=== PATIENT | male | born 1970 | race Caucasian/White ===

== ENCOUNTER 2020-04-07 14:51 | Emergency (ER) | payer MEDICAID ==
[~2020-04-07] VITALS: Ht 180.3 cm; Wt 79.9 kg
[2020-04-07] MEDS ORDERED: baclofen 10mg tablet PO STA (16:03)
[2020-04-07 16:32] LABS: BASOPHILS % (AUTO) 0.5 % (0-1); EOSINOPHILS % (AUTO) 0.3 % (0-6); HEMATOCRIT 46.1 % (42.0-52.0); HEMOGLOBIN 15.9 g/dl (14.0-17.9); MEAN CORPUSCULAR HEMOGLOBIN 30.9 PG (27.0-31.0); MEAN CORPUSCULAR HGB CONC 34.5 g/dL (33.0-36.5); MEAN CORPUSCULAR VOLUME 89.7 FL (78-98); MEAN PLATELET VOLUME 8.3 FL (7.4-10.4); MONOCYTES # (AUTO) 0.2 X10'3 (0-0.9); MONOCYTES % (AUTO) 2.2 % (2-12); NEUTROPHILS # (AUTO) 7.6 X10'3 (1.8-7.7); PLATELET COUNT 129 X10'3 (140-440); RED BLOOD COUNT 5.14 X10'6 (4.70-6.10); RED CELL DISTRIBUTION WIDTH 15.1 % (11.5-14.5); WHITE BLOOD COUNT 8.9 X10'3 (4.5-11.0)
[2020-04-07 16:45] LABS: ALANINE AMINOTRANSFERASE 213 U/L (12-78); ALBUMIN/GLOBULIN RATIO 1.2 (1.1-1.5); ALKALINE PHOSPHATASE 83 IU/L (46-116); ANION GAP 18 (8-16); ASPARTATE AMINO TRANSFERASE 237 U/L (10-37); BILIRUBIN,TOTAL 1.7 MG/DL (0.1-1.0); BLOOD UREA NITROGEN 12 MG/DL (7-18); CALCIUM 8.9 MG/DL (8.5-10.1); CHLORIDE 98 MMOL/L (99-107); GLUCOSE 72 MG/DL (70-104); POTASSIUM 4.3 MMOL/L (3.5-5.1); SODIUM 136 MMOL/L (135-145); TOTAL CARBON DIOXIDE 20.1 MMOL/L (24-32); TOTAL PROTEIN 7.4 G/DL (6.4-8.2); eGFR 79 ML/MIN
[2020-04-07] MEDS ORDERED: LORazepam 1 MG tablet PO ONE (17:10)
--- NOTE | 2020-04-07 17:18 | NUR ---
PT IS RESTING QUIETLY ON GURNEY, HAS RIDE TO GO DIRECTLY TO [facility] FOR DETOX OFF OF ETOH, LAST DRINK WAS 2 DAYS AGO,
[2020-04-07] MEDS ORDERED: ONDA4TAB6 PO (17:20)
[2020-04-07] MEDS ORDERED: LORA-269 PO (17:20)
[2020-04-07] MEDS ORDERED: DICY10CA88 PO (17:20)
[2020-04-07 17:29] VITALS: BP 114/85
== END 2020-04-07 17:33 | disposition home or self-care (01) ==
LOC: ER 14:52
DX: F10.10 Alcohol abuse, uncomplicated (principal); R74.0 Nonspecific elevation of levels of transaminase and lactic acid dehydrogenase [LDH]; R11.0 Nausea; R06.02 Shortness of breath; Z00.00 Encounter for general adult medical examination without abnormal findings; Z79.899 Other long term (current) drug therapy; Y90.0 Blood alcohol level of less than 20 mg/100 ml
CPT/HCPCS: 36415; 80053; 84484; 85025; 93005; 99284